=== PATIENT | female | born 2000 | race Two or more races ===

== ENCOUNTER 2019-12-10 13:06 | Emergency (ER) | payer SELFPAY ==
[~2019-12-10] VITALS: Ht 157.5 cm; Wt 54.4 kg
[2019-12-10 14:48] VITALS: BP 108/65
== END 2019-12-10 16:22 | disposition home or self-care (01) ==
LOC: ER 13:16
DX: M25.462 Effusion, left knee (principal); F12.10 Cannabis abuse, uncomplicated
CPT/HCPCS: 73562; 81025

== ENCOUNTER 2022-10-21 12:55 | Emergency (ER) | payer SELFPAY ==
[~2022-10-21] VITALS: Ht 157.5 cm; Wt 66.0 kg
[2022-10-21 13:30] VITALS: BP 106/53
[2022-10-21] MEDS ORDERED: HYDR50CA PO (15:03)
== END 2022-10-21 15:14 | disposition home or self-care (01) ==
LOC: ER 12:55
DX: F41.1 Generalized anxiety disorder (principal); F12.10 Cannabis abuse, uncomplicated

== ENCOUNTER 2022-11-03 13:20 | Emergency (ER) | payer SELFPAY ==
[~2022-11-03] VITALS: Ht 160 cm; Wt 62.7 kg
[~2022-11-03 13:20] MED LIST: HYDR50CA PO
[2022-11-03 13:57] VITALS: BP 122/67
[2022-11-03 14:21] LABS: Urine Bacteria MANY /hpf (None Seen); Urine Blood 1+ /uL (Negative); Urine Hyaline Cast FEW /lpf (0 - 2); Urine Mucus FEW (None Seen); Urine Specific Gravity 1.015 (1.001-1.035); Urine WBC 21 /hpf (0 - 5)
[2022-11-03] MEDS ORDERED: NITR-87 PO (15:07)
[2022-11-03] MEDS ORDERED: ONDA-144 PO (15:07)
== END 2022-11-03 15:24 | disposition home or self-care (01) ==
LOC: ER 13:27
DX: N39.0 Urinary tract infection, site not specified (principal); A08.4 Viral intestinal infection, unspecified; Z79.899 Other long term (current) drug therapy; Z20.822 Contact with and (suspected) exposure to COVID-19
CPT/HCPCS: 36415; 81001; 87426